=== PATIENT | female | born 1960 | race Hispanic/Latino ===

== ENCOUNTER 2019-05-06 10:01 | Emergency (ER) | payer OTHER ==
[~2019-05-06] VITALS: Ht 167.6 cm; Wt 97.5 kg
[2019-05-06] MEDS ORDERED: PREDNISONE20 MG (10:13)
[2019-05-06] MEDS ORDERED: LISINOPRIL-HCT1 EACH (10:13)
[2019-05-06] MEDS ORDERED: LEVOTHYROXINE50 MCG (10:13)
[2019-05-06] MEDS ORDERED: NAPROXEN500 MG (10:13)
[2019-05-06] MEDS ORDERED: MOTRIN800 MG (10:13)
[2019-05-06] MEDS ORDERED: KETOROLAC TROME10 MG PO (11:01)
[2019-05-06 11:16] VITALS: BP 108/67
== END 2019-05-06 11:50 | disposition home or self-care (01) ==
LOC: ER 10:01
DX: M79.662 Pain in left lower leg (principal); R26.2 Difficulty in walking, not elsewhere classified; I10 Essential (primary) hypertension; E78.5 Hyperlipidemia, unspecified; E03.9 Hypothyroidism, unspecified
CPT/HCPCS: 93971; 99283